=== PATIENT | female | born 1940 | race African-American/Black ===

== ENCOUNTER 2020-05-25 17:39 | Emergency (ER) | payer OTHER ==
[~2020-05-25] VITALS: Ht 165.1 cm; Wt 90.7 kg
[2020-05-25 19:26] LABS: CALCIUM 9.2 mg/dL (8.5-10.1); CREATININE 0.9 mg/dL (0.6-1.0); POTASSIUM 3.9 mmol/L (3.5-5.1)
[2020-05-25 19:31] LABS: ALBUMIN 3.4 g/dL (3.4-5.0); TOTAL BILIRUBIN 0.2 mg/dL (0.2-1.0); TOTAL PROTEIN 7.5 g/dL (6.4-8.2)
[2020-05-25 19:33] LABS: APTT 26.2 Seconds (24.5-32.8); INR 1.1; PROTIME 11.6 Seconds (9.3-11.4)
[2020-05-25 20:02] LABS: URINE BILIRUBIN NEGATIVE (Negative); URINE BLOOD 2+ (Negative); URINE CLARITY CLOUDY; URINE COLOR YELLOW; URINE GLUCOSE-RANDOM* NEGATIVE (Negative); URINE KETONES NEGATIVE (Negative); URINE NITRITE-REFLEX NEGATIVE (Negative); URINE PROTEIN (DIPSTICK) NEGATIVE (Negative); URINE SPECIFIC GRAVITY <= 1.005 (1.005-1.035); URINE UROBILINOGEN 0.2 E.U./dl (0.2-1.0)
[2020-05-25 20:03] LABS: URINE LEUKOCYTES-REFLEX 3+ (Negative)
[2020-05-25 20:11] LABS: AMORPHOUS URATES Few /LPF (None Seen); BACTERIA-REFLEX 1-9 Few /HPF (None Seen); CASTS None Seen /LPF (None Seen); SQUAMOUS 0-3 Few /LPF (0-3); URINE RBC 3-10 Few /HPF (0-2); URINE WBC-REFLEX 6-15 Few /HPF (0-5)
[2020-05-25 22:15] LABS: ABSOLUTE NEUTROPHILS 12.9 thou/uL (1.4-8.2); BASOPHILS 0.7 % (0.0-2.0); EOSINOPHILS 3.1 % (0.0-3.0); HEMATOCRIT 42.3 % (37.0-47.0); LYMPHOCYTES 11.8 % (24.0-44.0); MCHC 33.1 g/dL (28.0-37.0); MCV 87.5 fL (80.0-100.0); MONOCYTES 2.9 % (1.0-8.0); PLATELET COUNT 261 thou/uL (150-400); POLYS 81.5 % (36.0-66.0); RBC 4.84 mil/uL (4.20-5.00); RDW 14.4 % (10.5-14.5); WBC 17.6 thou/uL (4.0-11.0)
[2020-05-26] VITALS: BP 125/64
--- NOTE | 2020-05-30 07:23 | EKG ---
[facility] [place] [address] ELECTROCARDIOGRAM REPORT Name: MOLINA DUFF Room #: DEP [facility]#: [id number] Admission: 05/25/20 Attend Phys: Discharge: 05/26/20 Date of : 40 Report #: [id number] THIS REPORT FOR: cc: Derrick Al MD, Jan MD Santiago, Patrick MD 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
== END 2020-05-26 00:08 | disposition short-term general hospital (02) ==
LOC: ER 17:39
PROVIDERS: Emergency Medicine
DX: I62.9 Nontraumatic intracranial hemorrhage, unspecified (principal)